=== PATIENT | male | born 1955 | race Caucasian/White ===

== ENCOUNTER 2017-05-11 16:37 | Emergency (ER) | END 2017-05-11 23:20 | disposition home or self-care (01) ==

== ENCOUNTER 2018-08-24 07:58 | Emergency (ER) | payer OTHER ==
[~2018-08-24] VITALS: Ht 152.4 cm; Wt 68.6 kg
[~2018-08-24 07:58] MED LIST: ASPI-817 PO; ATOR-2 PO; CARV6.2579 PO; DOXY100T20 PO; EMPA10TA PO; HYDR-4011 PO; INSU100I33 SC; LISI-313 PO; METF100010 PO; NAPR-688 PO; NITR0.4T39 SL; ONDA4TAB14 PO; RANI150T5 PO
[2018-08-24 08:06] VITALS: Ht 152.4 cm; Wt 68.6 kg
[2018-08-24] MEDS ORDERED: ACETAMINOPHEN 500 MG TAB PO STA (08:24)
--- NOTE | 2018-08-24 08:50 | ERD ---
ER Documentation Chief Complaint Chief Complaint PT c/o MONCADA and dizziness after GLF-hit head on cement, KO per pt. HPI This is a 63-year-old male who presents for evaluation of a ground-level fall yesterday. Patient states she has been having a headache since then, yesterday he states that he been lifting something heavy, and felt lightheaded and fell. He endorses having had LOC at the time, since then he is complained of a frontal headache. He denies any chest pain or shortness of breath, he has not had any loss of consciousness in the episode, no vomiting. He takes aspirin. ROS All systems reviewed and are negative except as per history of present illness. Medications Home Meds Active Scripts Ondansetron (Ondansetron Odt) 4 Mg Tab.rapdis, 4 MG PO Q6H PRN for NAUSEA AND/OR VOMITING, #10 TAB Prov:IRLANDA RHODES DO 05/11/17 Hydrocodone/Acetaminophen ([place] 5-325 Tablet) 1 Each Tablet, 1 EACH PO Q8 for severe cough, severe pain, #10 TAB Prov:IRLANDA RHODES DO 05/11/17 Naproxen* (Naproxen*) 500 Mg Tablet, 500 MG PO BID PRN for PAIN, #20 TAB Prov:IRLANDA RHODES DO 05/11/17 Doxycycline Hyclate* (Doxycycline Hyclate*) 100 Mg Tablet.dr, 100 MG PO BID for 10 Days, TAB Prov:IRLANDA RHODES DO 05/11/17 Reported Medications Lisinopril* (Lisinopril*) 5 Mg Tablet, 5 MG PO DAILY, #30 TAB 05/11/17 Nitroglycerin* (Nitrostat*) 0.4 Mg Tab.subl, 0.4 MG SL Q5MIN PRN for CHEST PAIN, BOTTLE 05/11/17 Insulin Glargine,Hum.rec.anlog (Basaglar Kwikpen U-100) 100 Unit/1 Ml Insuln.pen, 25 UNIT SC QHS, EA 05/11/17 Atorvastatin* (Atorvastatin*) 80 Mg Tablet, 80 MG PO QHS, #30 TAB 05/11/17 Empagliflozin (Jardiance) 10 Mg Tablet, 10 MG PO DAILY, TAB 05/11/17 Ranitidine Hcl* (Ranitidine Hcl*) 150 Mg Tablet, 150 MG PO Q12, #60 TAB 05/11/17 Aspirin* (Aspirin* EC) 81 Mg Tablet.dr, 81 MG PO DAILY, TAB 05/11/17 Carvedilol* (Carvedilol*) 6.25 Mg Tablet, 12.5 MG PO BID, #60 TAB 05/11/17 Metformin Hcl* (Metformin Hcl*) 1,000 Mg Tablet, 1000 MG PO WITH BREAKFAST DINNE, #60 TAB 05/11/17 Allergies Allergies: Coded Allergies: No Known Allergy (Unverified , 05/11/17) PMhx/Soc History of Surgery: Yes (STENT 2012) Anesthesia Reaction: No Hx Neurological Disorder: No Hx Respiratory Disorders: No Hx Cardiac Disorders: Yes (CT, HYPERCHOLESTEROLEMIA) Hx Psychiatric Problems: No Hx Miscellaneous Medical Probl: Yes (dm ) Hx Alcohol Use: Yes (OCCASIONAL) Hx Substance Use: No Hx Tobacco Use: Yes Physical Exam Vitals Vital Signs Date Temp Pulse Resp B/P (MAP) Pulse Ox O2 O2 Flow FiO2 Time Delivery Rate 08/24/18 81 16 145/97 99 Room Air 10:39 (113) 08/24/18 98.1 93 14 146/86 99 08:06 (106) Physical Exam Const: No acute distress Head: Atraumatic, no scalp hematomas, no evidence of facial trauma, no Eyes: Normal Conjunctiva ENT: Normal External Ears, Nose and Mouth. Neck: Full range of motion. No meningismus. No C-spine tenderness. Resp: Clear to auscultation bilaterally Cardio: Regular rate and rhythm, no murmurs Abd: Soft, non tender, non distended. Normal bowel sounds Skin: No petechiae or rashes Back: No midline or flank tenderness Ext: No cyanosis, or edema Neur: Awake and alert Psych: Normal Mood and Affect Result Diagram: 08/24/18 0845 08/24/18 0845 Results 24 hrs Laboratory Tests Test 08/24/18 08:00 08/24/18 08:45 Troponin I < 0.012 ng/ml White Blood Count 5.2 10^3/ul Red Blood Count 4.92 10^6/ul Hemoglobin 14.2 g/dl Hematocrit 43.0 % Mean Corpuscular Volume 87.4 fl Mean Corpuscular Hemoglobin 28.9 pg Mean Corpuscular Hemoglobin Concent 33.0 g/dl Red Cell Distribution Width 16.7 % Platelet Count 157 10^3/UL Mean Platelet Volume 10.2 fl Immature Granulocytes % 0.000 % Neutrophils % 59.0 % Lymphocytes % 25.6 % Monocytes % 10.9 % Eosinophils % 3.9 % Basophils % 0.6 % Nucleated Red Blood Cells % 0.0 /100WBC Immature Granulocytes # 0.000 10^3/ul Neutrophils # 3.1 10^3/ul Lymphocytes # 1.3 10^3/ul Monocytes # 0.6 10^3/ul Eosinophils # 0.2 10^3/ul Basophils # 0.0 10^3/ul Nucleated Red Blood Cells # 0.0 10^3/ul Prothrombin Time 13.9 Sec Prothrombin Time Ratio 1.1 INR International Normalized Ratio 1.06 Activated Partial Thromboplast Time 27.5 Sec Sodium Level 139 mmol/L Potassium Level 4.0 mmol/L Chloride Level 103 mmol/L Carbon Dioxide Level 25 mmol/L Anion Gap 11 Blood Urea Nitrogen 18 mg/dl Creatinine 0.91 mg/dl Est Glomerular Filtrat Rate mL/min > 60 mL/min Glucose Level 250 mg/dl Calcium Level 9.1 mg/dl Current Medications Medications Dose Sig/Rossy Start Time Status Last (Trade) Ordered Route PRN Stop Time Admin Dose Reason Admin 1,000 mg ONCE STAT 08/24/18 DC 08/24/18 Acetaminophen PO 08:24 08:51 (Tylenol 08/24/18 08:27 Tab) Procedures/MDM 63-year-old male presents for evaluation headache, in the setting of recent ground-level fall. Have a low suspicion for cardiac etiology of syncope, but given history, he was evaluated, with an EKG and troponin. As he endorsed loss of consciousness, CT brain was performed. His cardiac work-up returned unremarkable, and CT brain showed no evidence of intracranial injury, patient may have mild concussion, and I discussed concussion return precautions at discharge the patient was in no distress. EKG: Rate/Rhythm: Normal Sinus Rhythm QRS, ST, T-waves: ST depressions noted inferiorly, when compared with EKG in 2018, no sig changes noted. No changes consistent w/ acute ischemia Impression: No evidence of ischemia or arrhythmia Departure Diagnosis: Primary Impression: Concussion Encounter type: initial encounter Loss of consciousness presence/duration: with LOC of unspecified duration Qualified Codes: S06.0X9A - Concussion with loss of consciousness of unspecified duration, initial encounter Condition: Good Patient Instructions: Concussion FANTA CALDERON MD Aug 24, 2018 08:50
[2018-08-24 10:39] VITALS: BP 145/97; PULSE 81; RESP 16
== END 2018-08-24 10:50 | disposition home or self-care (01) ==
LOC: E/R 07:58
DX: S06.0X9A Concussion with loss of consciousness of unspecified duration, initial encounter (principal); E11.9 Type 2 diabetes mellitus without complications; I25.2 Old myocardial infarction; R51 Headache; W18.30XA Fall on same level, unspecified, initial encounter; Y92.9 Unspecified place or not applicable; Z98.61 Coronary angioplasty status; Z79.4 Long term (current) use of insulin; Z79.82 Long term (current) use of aspirin; Z87.891 Personal history of nicotine dependence
CPT/HCPCS: 36415; 70450; 80048; 84484; 85025; 85610; 85730; 93005; Z7502; Z7610